=== PATIENT | male | born 1960 | race Two or more races ===

== ENCOUNTER 2016-05-26 06:32 | Emergency (ER) | payer SELFPAY ==
[~2016-05-26] VITALS: Ht 170.2 cm; Wt 79.4 kg
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
[2016-05-26] MEDS ORDERED: MORPHINE SULFATE INJ 4 MG/ML DISP.SYRIN ONE (06:42)
[2016-05-26] MEDS ORDERED: ONDANSETRON 4 MG TAB.RAPDIS ONE (06:42)
[2016-05-26] MEDS ORDERED: MORPHINE SULFATE INJ 2 MG/ML DISP.SYRIN IM ONE (07:00)
[2016-05-26] MEDS ORDERED: ONDANSETRON 4 MG TAB.RAPDIS PO ONE (07:00)
--- NOTE | 2016-05-26 07:13 | NUR ---
patient to ct.
--- NOTE | 2016-05-26 07:14 | NUR ---
report given to remington for maryellen.
[2016-05-26 08:00] VITALS: BP 148/88
--- NOTE | 2016-05-26 08:01 | NUR ---
Patient discharged to home in stable condition. Written and verbal after care instructions given. Patient verbalizes understanding of instruction.
== END 2016-05-26 08:01 | disposition home or self-care (01) ==
LOC: ER 06:34
DX: S40.011A Contusion of right shoulder, initial encounter (principal); S80.12XA Contusion of left lower leg, initial encounter; R51 Headache; V09.20XA Pedestrian injured in traffic accident involving unspecified motor vehicles, initial encounter; Y93.89 Activity, other specified; Y92.413 State road as the place of occurrence of the external cause; Y99.8 Other external cause status
CPT/HCPCS: 70450-TC; 73030-TC; 73590-TC; A4606; J2270; Q0162; Z7610